=== PATIENT | male | born 1965 | race Caucasian/White ===

== ENCOUNTER 2017-01-11 14:00 | Day surgery (SDC) | payer BC ==
[~2017-01-11] VITALS: Ht 182.9 cm; Wt 83.8 kg
[2017-01-11 14:21] VITALS: BP 110/90; PULSE 64
[2017-01-11] MEDS ORDERED: IBU600 MG PO (14:40)
[2017-01-11 16:00] VITALS: BP 107/80; PULSE 75; TEMP 97.9
== END 2017-01-11 16:50 | disposition home or self-care (01) ==
LOC: SDCO 14:00
DX: K57.30 Diverticulosis of large intestine without perforation or abscess without bleeding (principal); E78.00 Pure hypercholesterolemia, unspecified
CPT/HCPCS: OP; J2250; J3010; J7030

== ENCOUNTER → 2017-03-07 | Outpatient (CLI) | payer BC ==
[~2017-03-07] MED LIST: IBU600 MG PO
== END ==
LOC: COL.RAD 13:27
DX: M47.26 Other spondylosis with radiculopathy, lumbar region (principal); M51.16 Intervertebral disc disorders with radiculopathy, lumbar region; M48.06 Spinal stenosis, lumbar region; M25.78 Osteophyte, vertebrae

== ENCOUNTER → 2019-12-28 | Outpatient (CLI) | payer BC | LOC: COL.RAD 08:24 | DX: M48.061 Spinal stenosis, lumbar region without neurogenic claudication (principal); M47.816 Spondylosis without myelopathy or radiculopathy, lumbar region; M51.26 Other intervertebral disc displacement, lumbar region ==